=== PATIENT | male | born 1980 | race Caucasian/White ===

== ENCOUNTER 2019-10-19 19:20 | Emergency (ER) | payer MEDICAID ==
[~2019-10-19] VITALS: Ht 170.2 cm; Wt 100.0 kg
[~2019-10-19 19:20] MED LIST: HALOD100I IM; TRAZ-186 PO
[2019-10-19] MEDS ORDERED: TRAZ-252 PO (19:38)
[2019-10-19] MEDS ORDERED: KETOROLAC TROMETHAMINE 30 MG/ML VIAL IM ONE (20:30)
[2019-10-19 21:04] VITALS: BP 136/76
== END 2019-10-19 21:06 | disposition home or self-care (01) ==
LOC: EMS 19:21
DX: S09.90XA Unspecified injury of head, initial encounter (principal); K08.89 Other specified disorders of teeth and supporting structures; F20.9 Schizophrenia, unspecified; F17.210 Nicotine dependence, cigarettes, uncomplicated; Z98.890 Other specified postprocedural states; Z79.899 Other long term (current) drug therapy; W10.8XXA Fall (on) (from) other stairs and steps, initial encounter; Y93.89 Activity, other specified; Y92.89 Other specified places as the place of occurrence of the external cause; Y99.8 Other external cause status
CPT/HCPCS: 96372; 99283; 99406; J1885

== ENCOUNTER 2020-01-21 10:20 | Emergency (ER) | payer MEDICAID ==
[~2020-01-21] VITALS: Ht 170.2 cm; Wt 98.0 kg
[~2020-01-21 10:20] MED LIST changes: -HALOD100I IM; -TRAZ-186 PO; +TRAZ-252 PO
[2020-01-21 10:21] VITALS: BP 160/82
[2020-01-21] MEDS ORDERED: AZITHROMYCIN 250 MG TABLET PO ONE (11:15)
== END 2020-01-21 11:40 | disposition home or self-care (01) ==
LOC: EMS 10:21
DX: J18.9 Pneumonia, unspecified organism (principal); F17.210 Nicotine dependence, cigarettes, uncomplicated; F20.9 Schizophrenia, unspecified

== ENCOUNTER 2024-03-09 18:30 | Emergency (ER) | payer MEDICAID ==
[~2024-03-09] VITALS: Ht 172.7 cm; Wt 100.0 kg
[2024-03-09 19:49] VITALS: BP 135/74; PULSE 90; RESP 16; TEMP 98.3
[2024-03-09] MEDS ORDERED: IBUP-1554 PO (19:51)
== END 2024-03-09 20:10 | disposition home or self-care (01) ==
LOC: EMS 18:31
DX: S50.11XA Contusion of right forearm, initial encounter (principal); F20.9 Schizophrenia, unspecified; W14.XXXA Fall from tree, initial encounter; Y93.89 Activity, other specified; Y92.89 Other specified places as the place of occurrence of the external cause; Y99.8 Other external cause status
CPT/HCPCS: 99283

== ENCOUNTER 2024-07-25 18:41 | Emergency (ER) | payer MEDICAID, OTHER ==
[~2024-07-25] VITALS: Ht 170.2 cm; Wt 90.9 kg
[~2024-07-25 18:41] MED LIST changes: +IBUP-1554 PO
[2024-07-25 18:59] VITALS: BP 124/68; PULSE 91; RESP 14; TEMP 98.8; O2SAT 98
[2024-07-25] MEDS: IBUPROFEN 600 MG TABLET PO ONE (21:28)
[2024-07-25] MEDS: SULFAMETHOX/TRIMETH DS 800-160 MG/TABLET PO ONE (21:28)
[2024-07-25] MEDS ORDERED: SULF-261 PO (21:47)
[2024-07-25] MEDS ORDERED: IBUP-1492 PO (21:47)
== END 2024-07-25 22:35 | disposition home or self-care (01) ==
LOC: EMS 18:48
DX: L03.115 Cellulitis of right lower limb (principal); L03.116 Cellulitis of left lower limb; F20.9 Schizophrenia, unspecified; F15.10 Other stimulant abuse, uncomplicated
CPT/HCPCS: 99283

== ENCOUNTER 2025-06-17 14:10 | Emergency (ER) | payer OTHER ==
[~2025-06-17] VITALS: Ht 170.2 cm; Wt 104.5 kg
[~2025-06-17 14:10] MED LIST changes: +IBUP-1492 PO; +SULF-261 PO
[2025-06-17 14:15] VITALS: TEMP 98.6
[2025-06-17 15:30] VITALS: BP 128/97; PULSE 102; RESP 19; O2SAT 97
[2025-06-17 16:08] LABS: PLATELET COUNT (AUTO) 294 K/uL (150-450); RED BLOOD CELL COUNT(AUTO) 5.29 MIL/uL (4.50-5.90); RED CELL DISTRIBUTION WIDTH 14.0 % (11.5-14.5); WHITE BLOOD COUNT (AUTO) 7.1 K/uL (4.5-11.0)
[2025-06-17 16:19] LABS: CALCIUM, TOTAL 8.6 mg/dL (8.8-10.5); CREATININE 0.97 mg/dL (0.60-1.30); GLOMERULAR FILTR. RATE CALC > 60 mL/min (>60); GLUCOSE,RANDOM 116 mg/dL (70-110); SODIUM SERUM 136 mmol/L (136-145); UREA NITROGEN, BLOOD 13 mg/dL (7-18)
[2025-06-17] MEDS: ACETAMINOPHEN 500 MG TABLET PO ONE (16:59)
[2025-06-17 17:47] LABS: COVID AG,FIA SOURCE NASAL SWAB
[2025-06-17 18:06] LABS: SARS-COV2 (COVID) ANTIGEN,FIA Negative (Negative)
== END 2025-06-17 17:52 | disposition home or self-care (01) ==
LOC: EMS 14:10
DX: F20.9 Schizophrenia, unspecified (principal); R45.851 Suicidal ideations; R51.9 Headache, unspecified; M79.605 Pain in left leg; M79.604 Pain in right leg; F15.10 Other stimulant abuse, uncomplicated; Z20.822 Contact with and (suspected) exposure to COVID-19; Z79.899 Other long term (current) drug therapy; Z76.0 Encounter for issue of repeat prescription; W19.XXXA Unspecified fall, initial encounter; Y93.89 Activity, other specified; Y92.89 Other specified places as the place of occurrence of the external cause; Y99.8 Other external cause status
CPT/HCPCS: 99283; 87426; 80048; 85025; G0480

== ENCOUNTER 2025-06-18 09:41 | Emergency (ER) | payer OTHER ==
[~2025-06-18] VITALS: Ht 170.2 cm; Wt 104.0 kg
[2025-06-18 09:56] VITALS: TEMP 98.1
[2025-06-18] MEDS: ONDANSETRON 4 MG TABLET PO ONE (10:11)
[2025-06-18] MEDS: FAMOTIDINE 20 MG TABLET PO ONE (10:11)
[2025-06-18 10:29] LABS: PLATELET COUNT (AUTO) 305 K/uL (150-450); RED BLOOD CELL COUNT(AUTO) 5.35 MIL/uL (4.50-5.90); RED CELL DISTRIBUTION WIDTH 14.2 % (11.5-14.5); WHITE BLOOD COUNT (AUTO) 7.4 K/uL (4.5-11.0)
[2025-06-18 10:33] LABS: CALCIUM, TOTAL 8.8 mg/dL (8.8-10.5); CREATININE 1.10 mg/dL (0.60-1.30); GLOMERULAR FILTR. RATE CALC > 60 mL/min (>60); GLUCOSE,RANDOM 110 mg/dL (70-110); SODIUM SERUM 137 mmol/L (136-145); UREA NITROGEN, BLOOD 17 mg/dL (7-18)
[2025-06-18 10:37] LABS: ASPARTATE AMINOTRANSFERASE 21 U/L (15-37); TOTAL PROTEIN, SERUM 7.1 g/dL (6.4-8.2)
[2025-06-18 10:40] LABS: ALCOHOL, BLOOD (SERUM) < 3 mg/dL (0-10)
[2025-06-18 12:09] VITALS: BP 132/90; PULSE 95; RESP 18; O2SAT 97
[2025-06-18 12:13] LABS: ALCOHOL, URINE DRUG SCREEN NEGATIVE (NEGATIVE); AMPHET/METH SCREEN,URINE POSITIVE (NEGATIVE); BARBITURATE SCREEN, URINE NEGATIVE (NEGATIVE); CANNABINOID SCREEN,URINE NEGATIVE (NEGATIVE); COCAINE SCREEN,URINE NEGATIVE (NEGATIVE); METHADONE SCREEN, URINE NEGATIVE (NEGATIVE)
[2025-06-18 12:17] LABS: PH,URINE DRUG SCREEN 6.0 (5.0-8.0)
== END 2025-06-18 12:10 | disposition home or self-care (01) ==
LOC: EMS 09:47
DX: F15.90 Other stimulant use, unspecified, uncomplicated (principal); R11.2 Nausea with vomiting, unspecified; F20.9 Schizophrenia, unspecified; Z79.899 Other long term (current) drug therapy
CPT/HCPCS: 99284; 80048; 80076; 83690; 85025; 36415; 80307; G0480; Q0162

== ENCOUNTER 2025-06-18 20:35 | Emergency (ER) | payer OTHER ==
[~2025-06-18] VITALS: Ht 170.2 cm; Wt 104.5 kg
[2025-06-18 21:15] VITALS: BP 115/85; PULSE 104; RESP 18; TEMP 98.6; O2SAT 99
[2025-06-19 00:30] LABS: PLATELET COUNT (AUTO) 290 K/uL (150-450); RED BLOOD CELL COUNT(AUTO) 5.24 MIL/uL (4.50-5.90); RED CELL DISTRIBUTION WIDTH 14.1 % (11.5-14.5); WHITE BLOOD COUNT (AUTO) 7.1 K/uL (4.5-11.0)
[2025-06-19 00:41] LABS: CALCIUM, TOTAL 8.6 mg/dL (8.8-10.5); CREATININE 1.08 mg/dL (0.60-1.30); GLOMERULAR FILTR. RATE CALC > 60 mL/min (>60); GLUCOSE,RANDOM 110 mg/dL (70-110); SODIUM SERUM 137 mmol/L (136-145); UREA NITROGEN, BLOOD 16 mg/dL (7-18)
== END 2025-06-19 01:39 | disposition home or self-care (01) ==
LOC: EMS 20:35
DX: F20.9 Schizophrenia, unspecified (principal); F15.90 Other stimulant use, unspecified, uncomplicated; Z59.00 Homelessness unspecified; F17.210 Nicotine dependence, cigarettes, uncomplicated
CPT/HCPCS: 99284; 80048; 85025; 36415; G0480